=== PATIENT | male | born 1960 | race Hispanic/Latino ===

== ENCOUNTER 2019-09-30 08:59 | Outpatient (CLI) | payer OTHER ==
--- NOTE | 2019-09-30 10:34 | MRI ---
MRI brain with and without contrast: DATE: 09/30/2019 HISTORY: 59-year-old male with ICD-10: "Q 67.0 facial asymmetry." systems technologist's note: "[id number], Alexa Moore - 09/30/2019 9:51:03 AM Q67.0 FACIAL ASYMMETRY. PROTOCOL PER DR KAM. PT COMPLAINS OF LEFT SIDED NUMBNESS ON HIS FACE ALONG WITH A DROOPING LIP FOR A COUPLE OF MONTHS. PT STATES NO RECENT TRAUMA, NO SURGERY, AND NO PREVIOUS MRI OF THE BRAIN. PT INJECTED WITH 17 ML'S OF MULTIHANCE. PT DOCUMENTED NO HYPERTENSION, NOT DIABETIC , NO RENAL DISEASE OR RENAL FAILURE. PT HAD A LUA VIEW XRAY DONE HERE TODAY FOR MRI CLEARANCE. PT CLEARED FOR MRI PER DR LARA. MBG-TECH, TGM-NOTES." TECHNIQUE: Multiplanar, multisequence standard, routine MRI of the brain obtained pre and post IV injection of g adolinium based contrast agent. FINDINGS: There is no obstructive hydrocephalus. There is no midline shift or any other evidence of mass effect . There is no extra-axial fluid collection. There are mild chronic ischemic white matter changes due to microvascular atherosclerosis. There is otherwise no major intra-axial signal abnormality, abn ormal enhancement, mass, recent hemorrhage, or restricted diffusion. IMPRESSION: 1) mild chronic ischemic white matter changes. 2) otherwise negative
--- NOTE | 2019-09-30 11:13 | RAD ---
SINUS LUA 1 VIEW ONLY: HISTORY: MRI clearance. FINDINGS: No evidence of metallic opaque foreign body within the orbits. Mild mucosal periosteal changes of th e maxillary sinuses bilaterally. IMPRESSION: No evidence for metallic density foreign body within the orbits. POS: OFF
[2019-09-30] MEDS ORDERED: Magnevist 469MG/ML 20 ML VIAL ONE (13:52)
== END 2019-09-30 09:00 | disposition home or self-care (01) ==
LOC: BICMRI 08:59
PROVIDERS: ATTEND Family Medicine
DX: Q67.0 Congenital facial asymmetry (principal); I67.82 Cerebral ischemia
CPT/HCPCS: 70210; 70553; A9579

== ENCOUNTER 2020-12-05 07:19 | Outpatient (CLI) | payer OTHER | END 2020-12-05 07:20 | disposition home or self-care (01) | LOC: BICULT 07:19 | PROVIDERS: ATTEND Family Medicine | DX: R10.11 Right upper quadrant pain (principal) | CPT/HCPCS: 76705 ==

== ENCOUNTER 2025-01-24 08:15 | Outpatient (CLI) | payer OTHER | END 2025-01-24 08:16 | disposition home or self-care (01) | LOC: SCSMRI 08:15 | PROVIDERS: ATTEND Urology | DX: C61 Malignant neoplasm of prostate (principal) | CPT/HCPCS: 72197 ==